=== PATIENT | male | born 1990 | race Caucasian/White ===

== ENCOUNTER 2019-02-06 09:51 | Emergency (ER) | payer MEDICAID ==
[~2019-02-06] VITALS: Ht 175.3 cm; Wt 59.0 kg
[2019-02-06] MEDS ORDERED: METHOCARBAMOL 500MG TABLET PO ONE (14:30)
[2019-02-06] MEDS ORDERED: KETOROLAC 30MG/ML VIAL IM ONE (14:30)
[2019-02-06 15:00] VITALS: BP 140/95
== END 2019-02-06 15:01 | disposition home or self-care (01) ==
LOC: ER 09:57
DX: G89.29 Other chronic pain (principal); M54.5 Low back pain
CPT/HCPCS: 96372; 99283; J1885

== ENCOUNTER 2024-05-03 20:49 | Emergency (ER) | payer MEDICAID ==
[~2024-05-03] VITALS: Ht 170.2 cm; Wt 64.0 kg
[2024-05-03 21:14] VITALS: O2SAT 96
[2024-05-03] MEDS: LEVETIRACETAM 1000MG PREMIX 100 ML IV ONE (21:54)
[2024-05-03] MEDS: SODIUM CHLORIDE 0.9% 1,000 ML IV ONE (21:55)
[2024-05-03 22:07] VITALS: BP 133/91; PULSE 76; RESP 20; TEMP 98.3
[2024-05-03 22:13] LABS: BASOPHILS % 0.2 % (0.0-2.0); EOSINOPHILS % 0.4 % (0.0-5.0); HEMATOCRIT. 41.6 % (42.0-52.0); HEMOGLOBIN. 14.1 g/dL (14.0-18.0); LYMPHOCYTES % 7.1 % (20.0-50.0); MEAN CORPUSCULAR HEMOGLOBIN 30.3 pg (28.0-32.0); MEAN CORPUSCULAR HGB CONC 33.9 g/dL (31.0-37.0); MEAN CORPUSCULAR VOLUME 89.4 fL (80.0-94.0); MEAN PLATELET VOLUME 7.5 fl (7.4-10.4); MONOCYTES % 3.4 % (2.0-8.0); NEUTROPHILS % 88.9 % (40.0-76.0); PLATELET 352 x1000/uL (130-400); RED BLOOD CELL COUNT 4.66 mill/uL (4.7-6.1); RED CELL DISTRIBUTION WIDTH 13.5 % (11.6-14.6); WHITE BLOOD COUNT 15.9 x1000/uL (4.5-11.0)
[2024-05-03 22:18] LABS: CARBON DIOXIDE 27 mEq/L (21-32); CHLORIDE 105 mEq/L (98-107); SODIUM 138 mEq/L (136-145)
[2024-05-03 22:20] LABS: PROTHROMBIN TIME 11.1 sec (9.6-11.0)
[2024-05-03 22:23] LABS: CREATININE 0.9 mg/dL (0.6-1.3)
[2024-05-03 22:24] LABS: GLUCOSE 109 mg/dL (70-105); UREA NITROGEN BLOOD 11 mg/dL (9-23)
[2024-05-03 22:25] LABS: ETHANOL BLOOD < 10 mg/dL (<10)
[2024-05-03 22:42] LABS: TROPONIN I HIGH SENSITIVITY < 4 ng/L (3.0-53)
[2024-05-03 22:43] LABS: ALANINE AMINOTRANSFERASE 14 IU/L (10-49); ALBUMIN 4.6 g/dL (3.2-4.8); ASPARTATE AMINOTRANSFERASE 17 IU/L (<34); BILIRUBIN DIRECT 0.2 mg/dL (<=3.0); BILIRUBIN TOTAL 0.4 mg/dL (0.1-1.0); PROTEIN TOTAL 6.7 g/dL (6.0-8.3)
== END 2024-05-03 23:43 | disposition home or self-care (01) ==
LOC: ER 20:49
DX: R56.9 Unspecified convulsions (principal); I10 Essential (primary) hypertension
CPT/HCPCS: 80076; 80048; 80320; 85025; 85610; 84484; 36415; 70450; 93005; 96365; 99285; J1953; J7030; Z7610; G0480

== ENCOUNTER 2024-07-22 22:40 | Emergency (ER) | payer MEDICAID ==
[~2024-07-22] VITALS: Ht 177.8 cm; Wt 62.0 kg
[2024-07-22 22:45] VITALS: O2SAT 98
[2024-07-22 22:46] VITALS: TEMP 98.4; O2SAT 97
[2024-07-23] MEDS ORDERED: KETOROLAC 30MG/ML VIAL IM ONE (01:30)
[2024-07-23] MEDS ORDERED: METHOCARBAMOL 750MG TABLET PO SCH (01:30)
[2024-07-23] MEDS ORDERED: METHOCARBAMOL 500MG TABLET PO NR (01:30)
[2024-07-23] MEDS ORDERED: KETOROLAC 30MG/ML VIAL IM NR (01:30)
[2024-07-23 03:31] LABS: CLARITY URINE CLEAR (CLEAR); COLOR URINE YELLOW (YELLOW); GLUCOSE URINE NEGATIVE (NEGATIVE); KETONES URINE NEGATIVE (NEGATIVE); LEUKOCYTE ESTERASE URINE NEGATIVE (NEGATIVE); NITRITE URINE NEGATIVE (NEGATIVE); OCCULT BLOOD URINE NEGATIVE (NEGATIVE); PH URINE 6.5 (4.5-8.0); PROTEIN URINE NEGATIVE (NEGATIVE); UROBILINOGEN URINE 0.2 E.U./dL (0.2-1.0)
[2024-07-23] MEDS ORDERED: METH-653 MT (04:07)
[2024-07-23] MEDS ORDERED: CLON0.5T2 MT (04:07)
[2024-07-23] MEDS ORDERED: LIDO700A15 TP (04:07)
[2024-07-23] MEDS: LIDOCAINE 5% PATCH TOP STA (04:11)
[2024-07-23] MEDS: CLONAZEPAM 0.5MG TABLET PO ONE (04:11)
[2024-07-23 04:12] VITALS: PULSE 73
[2024-07-23] MEDS: HYDROCODONE/ACETAMINOPHEN 5/325MG TABLET PO ONE (04:12)
[2024-07-23] MEDS: LIDOCAINE 5% PATCH TOP NR (04:12)
[2024-07-23 04:13] VITALS: BP 130/77; RESP 20
== END 2024-07-23 04:40 | disposition home or self-care (01) ==
LOC: ER 22:40
DX: G89.29 Other chronic pain (principal); M54.50 Low back pain, unspecified; I10 Essential (primary) hypertension; F11.10 Opioid abuse, uncomplicated; V49.9XXA Car occupant (driver) (passenger) injured in unspecified traffic accident, initial encounter; Y93.89 Activity, other specified; Y92.89 Other specified places as the place of occurrence of the external cause; Y99.8 Other external cause status
CPT/HCPCS: 81003; 99283

== ENCOUNTER 2024-10-27 23:22 | Emergency (ER) | payer MEDICAID ==
[~2024-10-27] VITALS: Ht 177.8 cm; Wt 63.0 kg
[~2024-10-27 23:22] MED LIST: CLON0.5T2 MT; LIDO700A15 TP; METH-653 MT
[2024-10-27 23:42] VITALS: O2SAT 100
[2024-10-28] MEDS ORDERED: IBUP-2029 MT (00:51)
[2024-10-28] MEDS ORDERED: AMOX1TAB16 MT (00:51)
[2024-10-28] MEDS ORDERED: BO1 TP (00:51)
[2024-10-28] MEDS: IBUPROFEN 600MG TABLET PO ONE (01:00)
[2024-10-28] MEDS: TETANUS, DIPHTHERIA, PERTUSSIS VAC/PF 0.5ML (>10YR OLD) IM ONE (01:16)
[2024-10-28 01:46] VITALS: BP 149/92; PULSE 72; RESP 14; TEMP 36.78072; O2SAT 100
== END 2024-10-28 01:47 | disposition home or self-care (01) ==
LOC: ER 23:22
DX: S81.812A Laceration without foreign body, left lower leg, initial encounter (principal); I10 Essential (primary) hypertension; F11.10 Opioid abuse, uncomplicated; Z79.899 Other long term (current) drug therapy; W55.01XA Bitten by cat, initial encounter; Y93.89 Activity, other specified; Y92.89 Other specified places as the place of occurrence of the external cause; Y99.8 Other external cause status
CPT/HCPCS: 12001; 90471; 90715; 99283